=== PATIENT | female | born 1955 | race Caucasian/White ===

== ENCOUNTER 2025-02-05 11:48 | Emergency (ER) | payer MEDICARE, BC, SELFPAY ==
[2025-02-05 11:51] VITALS: BP 178/76; PULSE 59; RESP 16; TEMP 36.2; O2SAT 99; BMI 27.6
--- NOTE | 2025-02-05 11:56 | DI.RAD.S_ITS ---
PROCEDURE: XR FOOT RT MIN 3V INDICATIONS: heavy object landed on foot 10days ago TECHNIQUE: 3 views of the foot were acquired. COMPARISON: None. FINDINGS: Bones: No fractures or dislocations. Right foot joint osteoarthritic changes are seen. Small right plantar calcaneal enthesophyte. No suspicious bony lesions. Soft tissues: No tibiotalar joint effusion. Achilles tendon appears normal. IMPRESSION: No acute right foot fracture or dislocation. Right foot joint osteoarthritis. Dictated by: Bam Lopes M.D. on 02/05/2025 at 12:40 Approved by: Bam Lopes M.D. on 02/05/2025 at 12:41
--- NOTE | 2025-02-05 12:24 | PC.NURSE ---
Pt able to ambulate with difficulty using nataliya wrap and slipper to right foot. Swelling and bruising noted to dorsal surface of right foot.
--- NOTE | 2025-02-05 12:25 | ED_ITS ---
HPI - Extremity Injury (Lower) General Chief Complaint: Extremity Injury, Lower Stated Complaint: Heavy Object Fell on R Ft Time Seen by Provider: 02/05/25 12:09 Source: patient Mode of arrival: Ambulatory History of Present Illness HPI Narrative: 69-year-old female presents with right foot injury 10 days ago when his stead wall fell weighing 40 lb directly over the top of her foot. At that time she did not seek immediate medical attention but rest elevated compression and ice. She is still having some pain at times but the swelling has gone down but wanted to get an x-ray just to make sure there was nothing else going on since she still is having some lingering pain 10 days after the injury. She is able to walk but denies any numbnes,s tingling, down the toes, chest pain, shortness of breath. Other than what is stated 14 point review of system is negative Related Data Allergies Allergy/AdvReac Type Severity Reaction Status Date / Time bee venom protein (honey bee) Allergy Swelling Verified 02/05/25 11:51 of Lip/Tongue/Throat Review of Systems Review of Systems ROS Unobtainable: All systems reviewed & are unremarkable except as noted in HPI and below Patient History Social History Smoking Status: Current every day smoker Smoking Status: Current every day smoker tobacco type: cigarettes Exam Narrative Exam Narrative: GENERAL: [82] year old patient appears stated age. Well-developed patient, in mild distress. HEAD: Atraumatic. Normocephalic. EYES: Pupils equal round and reactive. Extraocular motions intact. No scleral icterus. No injection or drainage. ENT: Nose without bleeding, purulent drainage. Throat without erythema, t onsillar hypertrophy or exudate. Airway patent. NECK: Trachea midline. Non tender CARDIOVASCULAR: Regular rate and rhythm without murmurs, gallops, or rubs. RESPIRATORY: Clear to auscultation. Breath sounds equal bilaterally. No wheezes, rales, or rhonchi. GASTROINTESTINAL: Abdomen soft, non-tender, nondistended. EXTREMITIES: No edema or joint tenderness. R dorsum mod diffuse TTP with swelling over 3/4/5 MT region with bruising over all the digits 1/2/3/4/5, motor/sensory intact +2 DP +2PT cap refill <2secs BACK: Nontender without deformity or crepitance. No flank tenderness. NEURO: AOx3. SKIN: No rash or erythema of visible areas Initial Vital Signs Initial Vital Signs: Vital Signs Temperature 97.1 F L 02/05/25 11:51 Pulse Rate 59 L 02/05/25 11:51 Respiratory Rate 16 02/05/25 11:51 Blood Pressure 178/76 H 02/05/25 11:51 Pulse Oximetry 99 02/05/25 11:51 Oxygen Delivery Method Room Air 02/05/25 11:51 Course Orders Ordered: ED Orders 02/05/25 11:56 XR foot RT min 3V Stat Vital Signs Vital signs: Vital Signs - 8 hr 02/05/25 11:51 Temperature 97.1 F L Pulse Rate 59 L Respiratory Rate 16 Blood Pressure 178/76 H Pulse Oximetry 99 Oxygen Delivery Method Room Air MDM - Extremity Injury (Lower) Imaging Data Extremity x-ray #1: Radiologist's Impression: [address] [address] XRay Report Signed Patient: Ivon Hirsch MR#: [id number] : 1955 Acct:[id number] Age/Sex: 69 / F Date of Service: 02/05/25 Loc: ED Accession Number: [id number] Procedure: XR foot RT min 3V Ordering Provider: Jeremie Wolf D.O. PROCEDURE: XR FOOT RT MIN 3V INDICATIONS: heavy object landed on foot 10days ago TECHNIQUE: 3 views of the foot were acquired. COMPARISON: None. FINDINGS: Bones: No fractures or dislocations. Right foot joint osteoarthritic changes are seen. Small right plantar calcaneal enthesophyte. No suspicious bony lesions. Soft tissues: No tibiotalar joint effusion. Achilles tendon appears normal. IMPRESSION: No acute right foot fracture or dislocation. Right foot joint osteoarthritis. Dictated by: Bam Lopes M.D. on 02/05/2025 at 12:40 Approved by: Bam Lopes M.D. on 02/05/2025 at 12:41 [facility] Narrative Medical decision making narrative: Vital signs, nurse triage note, medication list, previous ER visits, and all imaging studies reviewed. Right foot x-ray show fracture or dislocation but arthritis. Differential diagnosis include fracture dislocation contusion. DC home return with new or worsening symptoms. To take Tylenol ibuprofen as needed for pain control and swelling. Discharge Plan Departure Patient Disposition: Home Clinical Impression: Contusion of foot Qualifiers: Encounter type: initial encounter Laterality: right Qualified Code(s): S90.31XA - Contusion of right foot, initial encounter Stand Alone Forms: Patient Portal/API
[2025-02-05 14:05] VITALS: RESP 17
== END 2025-02-05 14:06 | disposition home or self-care (01) ==
PROVIDERS: Emergency Provider Family Medicine
DX: S90.31XA Contusion of right foot, initial encounter (principal); W20.8XXA Other cause of strike by thrown, projected or falling object, initial encounter
CPT/HCPCS: 73630; 99281; 99283